=== PATIENT | female | born 1940 | race Caucasian/White ===

== ENCOUNTER 2020-07-11 17:22 | Emergency (ER) | payer OTHER, MEDICARE ==
[~2020-07-11] VITALS: Ht 157.5 cm; Wt 81.7 kg
[2020-07-11] MEDS ORDERED: CYCLOBENZAPRINE5 MG PO (20:04)
[2020-07-11 20:11] VITALS: BP 141/59
[2020-07-11] MEDS ORDERED: NORVASC5 MG PO (21:00)
[2020-07-11] MEDS ORDERED: LOPRESSOR50 PO (21:00)
[2020-07-11] MEDS ORDERED: ZOCOR 10 MG TAB10 M1 PO (21:00)
[2020-07-11] MEDS ORDERED: ALLOPURINOL 30300 M1 PO (21:00)
[2020-07-11] MEDS ORDERED: FUROSEMIDE 40 M40 M1 PO (21:00)
== END 2020-07-11 20:20 | disposition home or self-care (01) ==
LOC: ER 17:22
DX: S01.81XA Laceration without foreign body of other part of head, initial encounter (principal); S16.1XXA Strain of muscle, fascia and tendon at neck level, initial encounter; S43.401A Unspecified sprain of right shoulder joint, initial encounter; S63.602A Unspecified sprain of left thumb, initial encounter; I10 Essential (primary) hypertension; E78.5 Hyperlipidemia, unspecified; Z88.0 Allergy status to penicillin; V43.53XA Car driver injured in collision with pick-up truck in traffic accident, initial encounter; Y93.89 Activity, other specified; Y92.89 Other specified places as the place of occurrence of the external cause; Y99.8 Other external cause status